=== PATIENT | male | born 1960 | race Caucasian/White ===

== ENCOUNTER 2024-08-03 16:43 | Inpatient (IN) | payer SELFPAY ==
[2024-08-03] VITALS (7 sets, daily range): BP systolic 103–132; BP diastolic 74–92
[~2024-08-03] VITALS: Ht 177.8 cm; Wt 112.5 kg
[2024-08-03] MEDS ORDERED: ASPIRIN325 MG PO (16:59)
[2024-08-03 17:00] LABS: BASOPHILS 0.9 % (0-2); EOSINOPHILS 2.4 % (0-6); HEMATOCRIT 42.2 % (35.0-50.0); HEMOGLOBIN 13.9 g/dL (12.0-18.0); LYMPHOCYTES 19.4 % (24-44); MCH 30.7 (27-36); MONOCYTES 5.6 % (0-12); NEUTROPHILS 71.7 % (39-80); PLATELET COUNT 271 K/uL (140-440); RBC 4.54 M/ul (4.3-5.7); RDW 14.8 (10.5-15.0)
[2024-08-03] MEDS ORDERED: ASPIRIN 81 MG CHEW PO ONE (17:00)
[2024-08-03] MEDS ORDERED: DILTIAZEM HCl/D5W 125 ML IV ONE (17:15)
[2024-08-03] MEDS ORDERED: dilTIAZem HCL 25 MG/5 ML VIAL IV ONE (17:15)
[2024-08-03 17:20] LABS: ALBUMIN 3.7 g/dL (3.4-5.0); ALBUMIN/GLOBULIN RATIO 1.06 (1.1-2.4); ANION GAP 17.6 (7-21); BILIRUBIN, TOTAL 1.1 ng/dL (0.2-1.0); BUN/CREATININE RATIO 16.05 (6.0-28.6); CALCIUM 8.7 mg/dL (8.5-10.1); CREATININE, SERUM 1.37 mg/dL (0.70-1.30); MAGNESIUM 2.2 mg/dL (1.8-2.4); POTASSIUM 4.6 mmol/L (3.5-5.1); PROTEIN, TOTAL 7.2 g/dL (6.4-8.2)
[2024-08-03] MEDS ORDERED: ACETAMINOPHEN 325 MG TAB PO PRN (18:15)
[2024-08-03] MEDS ORDERED: bisacodyL 10 MG SUPP PR PRN (18:15)
[2024-08-03] MEDS ORDERED: ondansetron HCL 4 MG/2 ML VIAL IV PRN (18:15)
[2024-08-03] MEDS ORDERED: ENOXAPARIN SODIUM 40 MG/0.4 ML SYR SUB-Q SCH (18:17)
[2024-08-03] MEDS ORDERED: MELATONIN 3 MG TAB PO PRN (21:00)
[2024-08-03] MEDS ORDERED: APIXABAN 5 MG TAB PO SCH (22:12)
[2024-08-03] MEDS ORDERED: FUROSEMIDE 40 MG/4 ML VIAL IV ONE (22:15)
[2024-08-03 22:39] LABS: CHOLESTEROL/HDL RATIO 5.1; TSH, 3RD GENERATION 0.831 uIU/mL (0.358-3.740)
[2024-08-04] VITALS (27 sets, daily range): BP systolic 95–138; BP diastolic 71–108
[2024-08-04] MEDS ORDERED: DILTIAZEM HCl/D5W 125 ML IV SCH (02:00)
[2024-08-04 05:39] LABS: BASOPHILS 0.7 % (0-2); EOSINOPHILS 2.5 % (0-6); HEMATOCRIT 38.6 % (35.0-50.0); HEMOGLOBIN 12.9 g/dL (12.0-18.0); LYMPHOCYTES 21.4 % (24-44); MCH 30.5 (27-36); MCHC 33.3 g/dl (30-36); MCV 91.7 fl (81-99); NEUTROPHILS 69.4 % (39-80); PLATELET COUNT 247 K/uL (140-440); RBC 4.21 M/ul (4.3-5.7); RDW 14.6 (10.5-15.0)
[2024-08-04 05:48] LABS: ANION GAP 14.9 (7-21); BUN/CREATININE RATIO 15.94 (6.0-28.6); CALCIUM 8.8 mg/dL (8.5-10.1); CREATININE, SERUM 1.38 mg/dL (0.70-1.30); POTASSIUM 3.9 mmol/L (3.5-5.1)
[2024-08-04] MEDS ORDERED: FUROSEMIDE 40 MG/4 ML VIAL IV SCH (09:00)
[2024-08-04] MEDS ORDERED: AZITHROMYCIN 250 MG TAB PO SCH (09:18)
[2024-08-04] MEDS ORDERED: CEFTRIAXONE/SODIUM CHLORIDE 2 GM/100 ML PIGGYBACK IV SCH (09:18)
[2024-08-04] MEDS ORDERED: ALBUTEROL/IPRATROPIUM 3 ML NEB ONE (10:58)
[2024-08-04] MEDS ORDERED: POTASSIUM GLUCO99 MG PO (11:34)
[2024-08-04] MEDS ORDERED: PHARMACY RENAL DOSE ADJUSTMENT 1 DOSE MISC PO SCH (12:00)
[2024-08-04 13:54] LABS: INFLUENZA B NAA NEGATIVE (NEGATIVE); RESPIRATORY SYNCYTIAL VIR NAA NEGATIVE (NEGATIVE)
[2024-08-04] MEDS ORDERED: ALBUTEROL/IPRATROPIUM 3 ML NEB INH SCH (14:00)
[2024-08-04] MEDS ORDERED: ALBUTEROL SULFATE 0.083% 3 ML VIAL INH PRN (17:00)
[2024-08-05] VITALS (18 sets, daily range): BP systolic 91–124; BP diastolic 69–88
[2024-08-05 00:16] LABS: PROCALCITONIN 0.03 ng/mL (())
[2024-08-05 05:31] LABS: BASOPHILS 0.8 % (0-2); EOSINOPHILS 2.4 % (0-6); HEMATOCRIT 37.2 % (35.0-50.0); HEMOGLOBIN 12.6 g/dL (12.0-18.0); LYMPHOCYTES 23.5 % (24-44); MCH 31.2 (27-36); MCHC 33.9 g/dl (30-36); MCV 91.9 fl (81-99); MONOCYTES 6.9 % (0-12); NEUTROPHILS 66.4 % (39-80); PLATELET COUNT 216 K/uL (140-440); RBC 4.05 M/ul (4.3-5.7); RDW 14.7 (10.5-15.0)
[2024-08-05 05:56] LABS: ANION GAP 12.6 (7-21); BUN/CREATININE RATIO 15.67 (6.0-28.6); CALCIUM 8.8 mg/dL (8.5-10.1); CREATININE, SERUM 1.34 mg/dL (0.70-1.30); POTASSIUM 3.6 mmol/L (3.5-5.1)
[2024-08-05] MEDS ORDERED: levoFLOXacin 750 MG TAB PO SCH (08:00)
[2024-08-05] MEDS ORDERED: METOPROLOL TARTRATE 25 MG TAB PO SCH ×2 (09:15→16:15)
[2024-08-05] MEDS ORDERED: POTASSIUM CHLORIDE 10 MEQ TABCR PO ONE (09:15)
[2024-08-05] MEDS ORDERED: guaiFENesin 600 MG TABCR PO PRN (16:15)
--- NOTE | 2024-08-05 20:31 | EKG ---
[facility] [address] [place], [place] [address] Signed Atrial fibrillation with rapid ventricular response Abnormal ECG No previous ECGs available Confirmed by Carlo Knutson DO ([id number]) on 08/05/2024 8:31:11 PM Electronically Signed By: CARLO KNUTSON DO 08/05/242030 PATIENT NAME: ASIYA GONZALEZ FARA Electrocardiogram DATE OF : 64 PHYSICIAN: CARLO KNUTSON DO REPORT #: [id number] REPORT IS CONFIDENTIAL AND NOT TO BE RELEASED WITHOUT AUTHORIZATION
[2024-08-06] VITALS (19 sets, daily range): BP systolic 97–136; BP diastolic 58–107
[2024-08-06 05:29] LABS: BASOPHILS 0.7 % (0-2); EOSINOPHILS 1.2 % (0-6); HEMATOCRIT 38.8 % (35.0-50.0); HEMOGLOBIN 13.1 g/dL (12.0-18.0); LYMPHOCYTES 21.3 % (24-44); MCH 30.8 (27-36); MCHC 33.7 g/dl (30-36); MCV 91.4 fl (81-99); MONOCYTES 8.1 % (0-12); NEUTROPHILS 68.7 % (39-80); PLATELET COUNT 260 K/uL (140-440); RBC 4.24 M/ul (4.3-5.7); RDW 14.6 (10.5-15.0)
[2024-08-06 05:39] LABS: ANION GAP 14.1 (7-21); CALCIUM 9.2 mg/dL (8.5-10.1); CREATININE, SERUM 1.47 mg/dL (0.70-1.30); MAGNESIUM 2.2 mg/dL (1.8-2.4); POTASSIUM 4.1 mmol/L (3.5-5.1)
[2024-08-06] MEDS ORDERED: SENNOSIDES/DOCUSATE 1 EA TAB PO SCH (09:00)
[2024-08-06] MEDS ORDERED: POLYETHYLENE GLYCOL 3350 1 PACKET PO SCH (09:00)
[2024-08-06] MEDS ORDERED: SPIRONOLACTONE 25 MG TAB PO SCH (09:00)
[2024-08-06] MEDS ORDERED: DIGOXIN 500 MCG/2 ML AMP IV ONE ×2 (10:30→15:00)
[2024-08-06] MEDS ORDERED: CYCLOBENZAPRINE HCL 10 MG TAB PO PRN (11:30)
[2024-08-07] VITALS (11 sets, daily range): BP systolic 101–121; BP diastolic 73–96
[2024-08-07] MEDS ORDERED: METOPROLOL TARTRATE 50 MG TAB PO SCH (02:00)
[2024-08-07 05:32] LABS: BASOPHILS 0.4 % (0-2); EOSINOPHILS 2.1 % (0-6); HEMOGLOBIN 12.2 g/dL (12.0-18.0); LYMPHOCYTES 14.9 % (24-44); MCH 30.4 (27-36); MCV 92.2 fl (81-99); MONOCYTES 7.6 % (0-12); PLATELET COUNT 234 K/uL (140-440); RBC 4.01 M/ul (4.3-5.7); RDW 14.7 (10.5-15.0)
[2024-08-07 05:45] LABS: ANION GAP 12.8 (7-21); BUN/CREATININE RATIO 16.79 (6.0-28.6); CALCIUM 8.6 mg/dL (8.5-10.1); CREATININE, SERUM 1.31 mg/dL (0.70-1.30); MAGNESIUM 2.1 mg/dL (1.8-2.4); POTASSIUM 3.8 mmol/L (3.5-5.1)
[2024-08-07 05:52] LABS: DIGOXIN 0.7 ng/dL (0.9-2.0)
[2024-08-07] MEDS ORDERED: DIGOXIN 250 MCG TAB PO SCH (09:00)
[2024-08-07] MEDS ORDERED: METOPROLOL SUCCINATE 100 MG TABCR PO SCH (09:00)
[2024-08-07] MEDS ORDERED: IPRAT-ALBUT 0.5-3 ML INH ×2 (09:27→10:14)
[2024-08-07] MEDS ORDERED: LEVOFLOXACIN750 MG PO (09:27)
[2024-08-07] MEDS ORDERED: METOPROLOL SUC100 MG PO (09:28)
[2024-08-07] MEDS ORDERED: ALBUTEROL2.5 MG/3 M INH (09:28)
[2024-08-07] MEDS ORDERED: ELIQUIS5 MG PO (09:28)
[2024-08-07] MEDS ORDERED: LANOXIN250 MCG PO (09:28)
[2024-08-07] MEDS ORDERED: SPIRONOLACTONE25 MG PO (09:29)
[2024-08-07] MEDS ORDERED: VENTOLIN HFA18 GM INH (10:14)
== END 2024-08-07 11:15 | disposition home or self-care (01) | DRG 193 ==
LOC: ED 16:43 → CCU 18:48
PROVIDERS: Emergency Medicine; ADMIT Student in an Organized Health Care Education/Training Program; ATTEND Student in an Organized Health Care Education/Training Program
DX: J18.9 Pneumonia, unspecified organism (principal); I50.33 Acute on chronic diastolic (congestive) heart failure; N17.9 Acute kidney failure, unspecified; I48.91 Unspecified atrial fibrillation; F17.210 Nicotine dependence, cigarettes, uncomplicated; R73.03 Prediabetes; G47.30 Sleep apnea, unspecified; T50.1X5A Adverse effect of loop [high-ceiling] diuretics, initial encounter; R25.2 Cramp and spasm; Z98.890 Other specified postprocedural states; Z90.89 Acquired absence of other organs; Z88.5 Allergy status to narcotic agent; Z79.82 Long term (current) use of aspirin
CPT/HCPCS: 36415; 71045; 71260; 80048; 80053; 80061; 80162; 83036; 83735; 83880; 84439; 84443; 84484; 85025; 87502; 93005; 93010; 93306; 94640; 94667; 94668; A9270; J0696; J1160; J1650; J1940; Q9967; U0002